=== PATIENT | male | born 1975 | race Caucasian/White ===

== ENCOUNTER 2020-04-07 13:14 | Emergency (ER) | payer BC ==
[~2020-04-07] VITALS: Ht 185.4 cm; Wt 127.0 kg
[~2020-04-07 13:14] MED LIST: CLIN300C12 PO
--- NOTE | 2020-04-07 13:59 | ED General ---
General Stated Complaint: DIZZINESS Source of Information: Patient Exam Limitations: No Limitations History of Present Illness Date Seen by Provider: Apr 07, 2020 Time Seen by Provider: 13:37 Initial Comments Patient is a 44-year-old male who presents to the emergency department today with a chief complaint of dizzy spells. Patient states that he has had 3-4 episodes of dizziness that are brief and spontaneously resolved. Patient states they started yesterday. He is not having any headache, vision changes, ringing in his ears. He is not having any unilateral complaints of weakness, numbness or tingling. He is not having chest pain, palpitations, shortness of breath. He states he had a little bit of nausea this morning when he had an episode. He states that he felt like his heart might have been beating a little bit faster when the episode this afternoon happened. He states the episode this afternoon also lasted a little bit longer than the ones yesterday. Patient denies any recent illnesses such as fevers, chills, productive cough. He denies any GI symptoms such as nausea, vomiting or diarrhea. He also denies any urinary complaints. Patient tells me that he has run out of his blood pressure medications and just has never refilled them. He does have a history of coronary artery disease with multiple stents placed in 2016 and [address] Patient sees [address] Ted Steven at [facility] and he states that he cannot remember the last time that he actually had a clinic visit because he missed his most recent one. Patient states that he does drink caffeine, coffee and 2 large glasses a day. He is not been using any [id number] decongestants or cold medications. When he presents to the emergency department today his diastolic blood pressure is quite high over 100. All other review of systems reviewed and negative except as stated above. Timing/Duration: 1-2 Days Severity: Mild Associated Systoms: Denies Symptoms Allergies and Home Medications Allergies Coded Allergies: No Known Drug Allergies (Unverified , 09/16/14) Home Medications Clindamycin HCl 300 Mg Capsule, 300 MG PO Q8H Prescribed by: NILAM BA on 09/16/14 1251 Patient Home Medication List Home Medication List Reviewed: Yes Review of Systems Review of Systems Constitutional: see HPI, dizziness EENTM: no symptoms reported; No blurred vision, No double vision, No vision loss Respiratory: no symptoms reported Cardiovascular: no symptoms reported Gastrointestinal: no symptoms reported Genitourinary: no symptoms reported Musculoskeletal: no symptoms reported Skin: no symptoms reported Psychiatric/Neurological: Denies Headache, Denies Numbness, Denies Paresthesia, Denies Weakness All Other Systems Reviewed Negative Unless Noted: Yes Physical Exam Vital Signs Vital Signs - First Documented 04/07/20 13:32 Temp 36.6 Pulse 86 Resp 18 B/P (MAP) 201/109 (139) Pulse Ox 98 O2 Delivery Room Air Capillary Refill : Height, Weight, BMI Height: 6'0.00" Weight: 274lbs. oz. 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 This does not reproduce his symptoms. He does not have nystagmus sitting up or laying flat. I am unable to reproduce his symptoms of dizziness at all.) Progress/Results/Core Measures Suspected Sepsis SIRS Temperature: Pulse: Respiratory Rate: Laboratory Tests 04/07/20 13:55: White Blood Count 7.7 Blood Pressure / Mean: Laboratory Tests 04/07/20 13:55: Creatinine 0.82, Platelet Count 177 Results/Orders Lab Results Laboratory Tests Test 04/07/20 13:55 Range/Units White Blood Count 7.7 4.3-11.0 10^3/uL Red Blood Count 4.85 4.30-5.52 10^6/uL Hemoglobin 14.7 13.3-17.7 g/dL Hematocrit 43 40-54 % Mean Corpuscular Volume 89 80-99 fL Mean Corpuscular Hemoglobin 30 25-34 pg Mean Corpuscular Hemoglobin Concent 34 32-36 g/dL Red Cell Distribution Width 13.1 10.0-14.5 % Platelet Count 177 130-400 10^3/uL Mean Platelet Volume 10.7 9.0-12.2 fL Immature Granulocyte % (Auto) 0 % Neutrophils (%) (Auto) 66 42-75 % Lymphocytes (%) (Auto) 26 12-44 % Monocytes (%) (Auto) 6 0-12 % Eosinophils (%) (Auto) 1 0-10 % Basophils (%) (Auto) 1 0-10 % Neutrophils # (Auto) 5.1 1.8-7.8 10^3/uL Lymphocytes # (Auto) 2.0 1.0-4.0 10^3/uL Monocytes # (Auto) 0.5 0.0-1.0 10^3/uL Eosinophils # (Auto) 0.1 0.0-0.3 10^3/uL Basophils # (Auto) 0.0 0.0-0.1 10^3/uL Immature Granulocyte # (Auto) 0.0 0.0-0.1 10^3/uL Sodium Level 137 135-145 MMOL/L Potassium Level 3.8 3.6-5.0 MMOL/L Chloride Level 102 98-107 MMOL/L Carbon Dioxide Level 21 21-32 MMOL/L Anion Gap 14 5-14 MMOL/L Blood Urea Nitrogen 15 7-18 MG/DL Creatinine 0.82 0.60-1.30 MG/DL Estimat Glomerular Filtration Rate > 60 BUN/Creatinine Ratio 18 Glucose Level 89 70-105 MG/DL Calcium Level 9.0 8.5-10.1 MG/DL My Orders Orders - JOSE DUVAL MD Ekg Tracing (04/07/20 13:59) Cbc With Automated Diff (04/07/20 13:59) Basic Metabolic Panel (04/07/20 13:59) Vital Signs/I&O 04/07/20 13:32 Temp 36.6 Pulse 86 Resp 18 B/P (MAP) 201/109 (139) Pulse Ox 98 O2 Delivery Room Air Capillary Refill : ECG Initial ECG Impression Date: Apr 07, 2020 Initial ECG Impression Time: 14:00 Initial ECG Rate: 83 Initial ECG Rhythm: Normal Sinus Initial ECG Intervals: Normal Initial ECG Impression: Normal Departure Impression Primary Impression: Dizziness Additional Impression: Hypertension Qualified Codes: I10 - Essential (primary) hypertension Disposition: 01 HOME, SELF-CARE Condition: Stable Departure-Patient Inst. Decision time for Depature: 15:04 Referrals: NO,LOCAL PHYSICIAN (PCP/Family) Primary Care Physician Patient Instructions: Dizziness, Adult ED, High Blood Pressure (DC) Add. Discharge Instructions: Restart your blood pressure medicine and cholesterol medicine. I have sent these prescriptions to [facility]. If you did continue to have dizzy spells you can try [id number] meclizine. This can be taken every 6 hours as needed for dizzy spells. Come back to the emergency room if you have persistent dizziness that is associated with headache, vision changes, nausea vomiting or any other emergent concerning symptoms. Please follow-up with your primary care physician as well as Dr. Steven, your medical logistics specialist. Scripts Metoprolol Tartrate (Metoprolol Tartrate) 100 Mg Tablet 100 MG PO DAILY, #30 TAB Prov: JOSE DUVAL MD 04/07/20 Losartan/Hydrochlorothiazide (Losartan-Hctz 100-12.5 mg Tab) 1 Each Tablet 1 EACH PO DAILY, #30 TAB Prov: JOSE DUVAL MD 04/07/20 Atorvastatin Calcium (Atorvastatin Calcium) 40 Mg Tablet 40 MG PO DAILY, #30 TAB Prov: JOSE DUVAL MD 04/07/20 Amlodipine Besylate (Amlodipine Besylate) 5 Mg Tablet 5 MG PO DAILY, #30 TAB Prov: JOSE DUVAL MD 04/07/20 JOSE DUVAL MD Apr 07, 2020 13:59
[2020-04-07 14:13] LABS: BASOPHILS % (AUTO) 1 % (0-10); EOSINOPHILS # (AUTO) 0.1 10^3/uL (0.0-0.3); EOSINOPHILS % (AUTO) 1 % (0-10); HEMATOCRIT 43 % (40-54); HEMOGLOBIN 14.7 g/dL (13.3-17.7); LYMPHOCYTES % (AUTO) 26 % (12-44); MEAN CORPUSCULAR HEMOGLOBIN 30 pg (25-34); MEAN CORPUSCULAR HGB CONC 34 g/dL (32-36); MEAN CORPUSCULAR VOLUME 89 fL (80-99); MEAN PLATELET VOLUME 10.7 fL (9.0-12.2); MONOCYTES # (AUTO) 0.5 10^3/uL (0.0-1.0); MONOCYTES % (AUTO) 6 % (0-12); NEUTROPHILS # (AUTO) 5.1 10^3/uL (1.8-7.8); NEUTROPHILS % (AUTO) 66 % (42-75); PLATELET COUNT 177 10^3/uL (130-400); WHITE BLOOD COUNT 7.7 10^3/uL (4.3-11.0)
[2020-04-07 14:18] LABS: CHLORIDE 102 MMOL/L (98-107); POTASSIUM 3.8 MMOL/L (3.6-5.0); SODIUM 137 MMOL/L (135-145)
[2020-04-07 14:19] LABS: GLUCOSE 89 MG/DL (70-105)
[2020-04-07 14:21] LABS: CARBON DIOXIDE 21 MMOL/L (21-32)
[2020-04-07 14:23] LABS: CREATININE SERUM 0.82 MG/DL (0.60-1.30); GFR ESTIMATED > 60
[2020-04-07 14:24] LABS: BUN/CREATININE RATIO 18
[2020-04-07] MEDS ORDERED: ATOR40TA70 PO (15:07)
[2020-04-07] MEDS ORDERED: METO100T12 PO (15:07)
[2020-04-07] MEDS ORDERED: AMLO-250 PO (15:07)
[2020-04-07] MEDS ORDERED: LOSA1TAB26 PO (15:07)
[2020-04-07 15:18] VITALS: BP 144/76
== END 2020-04-07 15:18 | disposition home or self-care (01) ==
LOC: EDUNIT# 13:14 → ER 13:16
DX: I10 Essential (primary) hypertension (principal)
CPT/HCPCS: 36415; 80048; 85025; 93005